=== PATIENT | male | born 1990 | race African-American/Black ===

== ENCOUNTER 2021-03-10 22:55 | Emergency (ER) | payer OTHER ==
[~2021-03-10] VITALS: Ht 185 cm; Wt 81.0 kg
[2021-03-10] MEDS ORDERED: KETOROLAC 30 MG/ML VIAL IVP STA (23:05)
--- NOTE | 2021-03-10 23:11 | ED Upper Extremity ---
General Chief Complaint: Upper Extremity Stated Complaint: L SHOULDER INJ / DISLOCATION Source: patient History of Present Illness Date Seen by Provider: Mar 10, 2021 Time Seen by Provider: 23:00 Initial Comments PT ARRIVES VIA POV PT IS IN [place] FOR A SOFT BALL TOURNAMENT 45 MINUTES PRIOR TO ARRIVAL, WAS STANDING AND A BASE RUNNER RAN INTO HIS LEFT SHOULDER, HE WAS TRYING TO TAG HIM C/O LEFT SHOULDER DISLOCATION NO OTHER INJURIES NO PRIOR INJURIES TO THIS SHOULDER NO PARESTHESIAS OR MOTOR DEFICITS PCP: PT LIVES IN [place], [place] Allergies and Home Medications Allergies Coded Allergies: No Known Drug Allergies (Unverified , 03/10/21) Home Medications Hydrocodone/Acetaminophen 1 Each Tablet, 1 EACH PO Q4-6 HOURS PRN for PAIN Prescribed by: FLORIN ARGUELLO on 03/11/21 0016 Ibuprofen 800 Mg Tablet, 800 MG PO Q6H PRN for PAIN-MILD Prescribed by: FLORIN ARGUELLO on 03/11/21 0018 Patient Home Medication List Home Medication List Reviewed: Yes Review of Systems Constitutional: no symptoms reported Respiratory: no symptoms reported Cardiovascular: no symptoms reported Musculoskeletal: see HPI Psychiatric/Neurological: No Symptoms Reported Past Cmyvxto-Fmhxge-Aqbuip Hx Past Med/Social Hx: Reviewed and Corrections made Patient Social History Alcohol Use: Occasionally Uses Drug of Choice: THC Smoking Status: Current Everyday Smoker Substance type: Marijuana Seasonal Allergies Seasonal Allergies: Yes Past Medical History Surgeries: Yes (LEFT ARM FX/REPAIR) Orthopedic Respiratory: No Cardiac: No Neurological: No Genitourinary: No Gastrointestinal: No Musculoskeletal: Yes (LEFT ARM FX / REPAIR) Fractures Endocrine: No HEENT: No Cancer: No Psychosocial: No Integumentary: No Blood Disorders: No Physical Exam Vital Signs Vital Signs - First Documented 03/10/21 23:15 Temp 36.9 Pulse 72 Resp 38 B/P (MAP) 145/85 (105) Pulse Ox 95 O2 Delivery Room Air Capillary Refill : Height, Weight, BMI Height: '" Weight: lbs. oz. kg; BMI Method: General Appearance: WD/WN, no apparent distress Neck: non-tender Cardiovascular: normal peripheral pulses, regular rate, rhythm Respiratory: chest non-tender, normal breath sounds Shoulder: bone tenderness, deformity (AC DROP OFF AND ANTERIOR FULLNESS), limited ROM, pain, soft tissue tenderness Elbow/Forearm: normal inspection Wrist: Yes normal inspection Hand: normal inspection Neurologic/Tendon: normal sensation, normal motor functions, normal tendon functions Neurologic/Psychiatric: recenterer II-XII nml as tested, no motor/sensory deficits, alert, normal mood/affect, oriented x 3 Skin: normal color (PT IS BLACK), warm/dry, tattoos/piercings (TATTOOS) Procedures/Interventions Patient Education: Explained Benefits, Explained Risks, Pt. Ack. Understanding Agreement on procedure with pt: Yes Breath Sounds per Auscultation: Clear Heart Sounds per Auscultation: Regular Airway Exam: Mouth opens >2 fingers, Neck Full Range of Motion, Visulation of Uvula SEE NURSING NOTES FOR DETAILS Splinting and Joint Reduction : Location: LEFT SHOULDER Pre-Proc Neuro Vasc Exam: normal Post-Proc Neuro Vasc Exam: normal Joint Reduction Site: shoulder (L) Reduction Attempts: 1 Pre-Procedure NV Exam: Yes post joint reduction film: joint reduced Progress SEE NURSING NOTES FOR DETAILS Immobilizers: Large Shoulder Progress/Results/Core Measures Results/Orders My Orders Orders - FLORIN ARGUELLO DO Ed Iv/Invasive Line Start (03/10/21 23:05) Monitor-Rhythm Ecg Trace Only (03/10/21 23:05) Shoulder, Left, 3 Views (03/10/21 23:05) Ed Iv/Invasive Line Start (03/10/21 23:05) Lactated Ringers (Lr 1000 Ml Iv Solution (03/10/21 23:15) Ketorolac Injection (Toradol Injection) (03/10/21 23:05) Shoulder, Left, 1 View (03/11/21 00:03) Rx-Hydrocodone/Apap 5-325 Mg (Rx-Vicodin (03/11/21 00:15) Shoulder Immoblizer (03/11/21 00:03) Medications Given in ED Current Medications Medications Dose Ordered Sig/Sommer Route Start Time Stop Time Status Last Admin Dose Admin Acetaminophen/ Hydrocodone Bitart 1 ea Q4H PRN PO 03/11/21 00:15 03/11/21 01:05 1 EA Lactated Ringer's 1,000 ml @ 0 mls/hr Q0M ONCE IV 03/10/21 23:15 03/10/21 23:16 DC 03/10/21 23:17 0 MLS/HR Vital Signs/I&O 03/10/21 23:15 Temp 36.9 Pulse 72 Resp 38 B/P (MAP) 145/85 (105) Pulse Ox 95 O2 Delivery Room Air Progress Progress Note : Progress Note CONSCIOUS SEDATION AND CLOSED REDUCTION OF LEFT SHOULDER DISLOCATION PERFORMED PT TOLERATED WELL NO COMPLICATIONS PT TOLERATING WATER PRIOR TO DISMISSAL, PT ABLE TO AMBULATE ON HIS OWN WITHOUT DIFFICULTY Diagnostic Imaging Comments XRAYS LEFT SHOULDER--ANTERIOR DISLOCATION, PENDING RADIOLOGIST REVIEW POST REDUCTION LEFT SHOULDER--GOOD ALIGNMENT, NO FRACTURE, PENDING RADIOLOGIST REVIEW Reviewed: Reviewed by Me Departure Communication (Admissions) 001--CALLED THE [facility], FOR NAME OF ORTHOPEDIC SURGEON FOR PT TO FOLLOW UP WITH. WAS ADVISED TO HAVE PT CONTACT [facility] AT [phone] Impression Primary Impression: Dislocation of left shoulder joint Disposition: HOME, SELF-CARE Condition: Improved Departure-Patient Inst. Patient Instructions: How to Use a Shoulder Sling ED, Shoulder Dislocation (DC) Add. Discharge Instructions: WEAR SHOULDER IMMOBILIZER AT ALL TIMES--DO NOT MOVE ARM ICE TO AREA AT 20 MINUTE INTERVALS FOLLOW UP WITH ORTHOPEDIC SURGEON IN A FEW DAYS FOR FOLLOW UP CARE--CALL ON FRIDAY TO SCHEDULE APPOINTMENT [facility] [phone] All discharge instructions reviewed with patient and/or family. Voiced understanding. Scripts Ibuprofen (Ibuprofen) 800 Mg Tablet 800 MG PO Q6H PRN for PAIN-MILD, #20 TAB Prov: FLORIN ARGUELLO DO 03/11/21 Hydrocodone/Acetaminophen (Hydrocodone-Acetamin 5-325 mg) 1 Each Tablet 1 EACH PO Q4-6 HOURS PRN for PAIN, #20 TAB Prov: FLORIN ARGUELLO DO 03/11/21 Work/School Note: Work Release Form Date Seen in the Emergency Department: Mar 10, 2021 Restrictions: Need Release from Doctor FLORIN ARGUELLO DO Mar 10, 2021 23:11
[2021-03-10] MEDS ORDERED: LACTATED RINGERS 1,000 ML IV ONE ×2 (23:15→23:57)
[2021-03-10] MEDS ORDERED: fentaNYL INJ 100 MCG/2 ML AMP ONE ×2 (23:43→23:56)
[2021-03-10] MEDS ORDERED: MIDAZOLAM 5 MG/5 ML (VERSED) VIAL ONE ×2 (23:44→23:57)
[2021-03-11] MEDS ORDERED: ACHD5005 PO (00:16)
[2021-03-11] MEDS ORDERED: IBUP-1780 PO (00:18)
[2021-03-11 01:10] VITALS: BP 130/84
--- NOTE | 2021-03-11 07:29 | Diagnostic Imaging Report ---
HISTORY: Left shoulder pain TECHNIQUE: 3 views of the left shoulder COMPARISON: None FINDINGS: There is anterior dislocation of the left humeral head from the glenoid. There does appear to be offset at the acromioclavicular joint. No fracture is identified. IMPRESSION: 1. Anterior dislocation of the left glenohumeral joint without fracture seen. 2. Offset at the left acromioclavicular joint may be from a type II or type III separation injury. Dictated by: Dictated on workstation # [id number]
--- NOTE | 2021-03-11 07:30 | Diagnostic Imaging Report ---
History: Postreduction of the left shoulder TECHNIQUE: Frontal view of the left shoulder COMPARISON: Radiographs from the same day FINDINGS: The glenohumeral alignment appears improved. There does appear to be a Hill-Sachs lesion present. No bony Bankart fracture is identified on this single film. There is persistent widening of the acromioclavicular joint. IMPRESSION: 1. Alignment of the left glenohumeral joint appears resolved on this single view. A Hill-Sachs lesion is noted. 2. Mild widening at the acromioclavicular joint, may be due to separation injury. Dictated by: Dictated on workstation # [id number]
== END 2021-03-11 01:10 | disposition home or self-care (01) ==
LOC: ER 22:58
DX: S43.015A Anterior dislocation of left humerus, initial encounter (principal); F17.210 Nicotine dependence, cigarettes, uncomplicated; W50.0XXA Accidental hit or strike by another person, initial encounter; Y93.64 Activity, baseball
CPT/HCPCS: 73020; 73030; 93041